=== PATIENT | male | born 1995 ===

== ENCOUNTER 2018-02-17 15:52 | Emergency (ER) | payer BC, SELFPAY ==
--- NOTE | 2018-02-17 15:54 | W.ED.GENAD ---
Discharge Plan Disposition Patient Disposition: HOME Condition: Good Discharge Details Chief Complaint: RespSymp Clinical Impression: Sinusitis ED Provider: Yariel Benitez Home Meds and New Rx's Prescriptions: New amoxicillin-pot clavulanate [Augmentin] 875-125 mg tablet 1 tab PO BID Qty: 14 RF: 0 No Action testosterone cypionate [Depo-Testosterone] 200 mg/mL Oil 50 mg IM QWEEK RF: 0 Discharge Instructions Instructions: Sinusitis (ED) Medical Decision Making 22 yo male who denies chronic medical problems comes in with cc of sinus pressure for over 2 weeks and claer rhinorrhea. Denies severe headaches or fevers or vision changes. Has normal ear exam and external mastoid exam, perrl, eomi. Does have pain with percussion over maxillary sinuses consistent with sinuses, given over 10 days of symptoms will trial abx and advised f/u with pcp if no improvement and return precautions given Differential Diagnosis uri, allergic vs viral vs bacterial sinusitis HPI General Mode of arrival: ambulatory. Date/Time Provider Initiated Documentation: 02/17/18 15:53. Limitations to Documentation: no limitations. Information obtained by: patient. History of Present Illness 22 year old M presents to the emergency department with the chief complaint of sinus pressure, described as moderate, with intensity rated at 5. Quality is described as aching, and is localized to the face. Patient started experiencing this week(s) (2) and it has been constant. No exacerbating factors reported . Patient notes no other symptoms.. Patient did receive the following treatments prior to arrival, none Related Data Home Medications Medication Instructions Recorded Confirmed amoxicillin-pot clavulanate 1 tab PO BID #14 tab 02/17/18 [Augmentin] testosterone cypionate 50 mg IM QWEEK 02/17/18 02/17/18 [Depo-Testosterone] Previous Rx's Medication Instructions Recorded amoxicillin-pot clavulanate 1 tab PO BID #14 tab 02/17/18 [Augmentin] Allergies Allergy/AdvReac Type Severity Reaction Status Date / Time No Known Allergies Allergy Unverified 02/17/18 16:00 Review of Systems Review of Systems All systems reviewed & are unremarkable except as noted in HPI and below Constitutional Denies chills and Denies fever(s) Cardiovascular Denies chest pain and Denies dyspnea Respiratory Denies dyspnea Gastrointestinal Denies abdominal pain, Denies nausea and Denies vomiting Musculoskeletal Denies joint swelling Integumentary/Breasts Denies rash PFSH Social History Smoking/Tobacco Use Status: Never Social History Smoking/Tobacco Use Status: Never Exam Const General: no acute distress Orientation: alert HENMT Head: normal to inspection Ears: external ears normal General nose exam: external nose normal Mouth: moist mucous membranes Eyes General: appearance normal, both eyes and all related structures Neck Neck: normal visual inspection Resp Effort & Inspection: normal respiratory effort and able to speak in complete sentences Cardio Rate: regular rate Skin General skin exam: no rashes or lesions noted Neuro General: alert and oriented x3 Extrem General: normal to inspection Psych Mental Status: mental status grossly normal
[2018-02-17 15:55] VITALS: BP 137/90; PULSE 80; RESP 16; TEMP 36.7; O2SAT 95
--- NOTE | 2018-02-17 16:03 | ED.GENADUL_ITS ---
Discharge Plan Disposition Patient Disposition: HOME Condition: Good Discharge Details Chief Complaint: RespSymp Clinical Impression: Sinusitis ED Provider: Yariel Benitez Home Meds and New Rx's Prescriptions: New amoxicillin-pot clavulanate [Augmentin] 875-125 mg tablet 1 tab PO BID Qty: 14 RF: 0 No Action testosterone cypionate [Depo-Testosterone] 200 mg/mL Oil 50 mg IM QWEEK RF: 0 Discharge Instructions Instructions: Sinusitis (ED) Medical Decision Making 22 yo male who denies chronic medical problems comes in with cc of sinus pressure for over 2 weeks and claer rhinorrhea. Denies severe headaches or fevers or vision changes. Has normal ear exam and external mastoid exam, perrl, eomi. Does have pain with percussion over maxillary sinuses consistent with sinuses, given over 10 days of symptoms will trial abx and advised f/u with pcp if no improvement and return precautions given Differential Diagnosis uri, allergic vs viral vs bacterial sinusitis HPI General Mode of arrival: ambulatory . Date/Time Provider Initiated Documentation: 02/17/18 15:53 . Limitations to Documentation: no limitations . Information obtained by: patient . History of Present Illness 22 year old M presents to the emergency department with the chief complaint of sinus pressure, described as moderate, with intensity rated at 5. Quality is described as aching, and is localized to the face. Patient started experiencing this week(s) (2) and it has been constant. No exacerbating factors reported . Patient notes no other symptoms.. Patient did receive the following treatments prior to arrival, none Related Data Home Medications Medication Instructions Recorded Confirmed amoxicillin-pot clavulanate 1 tab PO BID #14 tab 02/17/18 [Augmentin] testosterone cypionate 50 mg IM QWEEK 02/17/18 02/17/18 [Depo-Testosterone] Previous Rx's Medication Instructions Recorded amoxicillin-pot clavulanate 1 tab PO BID #14 tab 02/17/18 [Augmentin] Allergies Allergy/AdvReac Type Severity Reaction Status Date / Time No Known Allergies Allergy Unverified 02/17/18 16:00 Review of Systems Review of Systems All systems reviewed & are unremarkable except as noted in HPI and below Constitutional Denies chills and Denies fever(s) Cardiovascular Denies chest pain and Denies dyspnea Respiratory Denies dyspnea Gastrointestinal Denies abdominal pain, Denies nausea and Denies vomiting Musculoskeletal Denies joint swelling Integumentary/Breasts Denies rash PFSH Social History Smoking/Tobacco Use Status: Never Social History Smoking/Tobacco Use Status: Never Exam Const General: no acute distress Orientation: alert HENMT Head: normal to inspection Ears: external ears normal General nose exam: external nose normal Mouth: moist mucous membranes Eyes General: appearance normal, both eyes and all related structures Neck Neck: normal visual inspection Resp Effort & Inspection: normal respiratory effort and able to speak in complete sentences Cardio Rate: regular rate Skin General skin exam: no rashes or lesions noted Neuro General: alert and oriented x3 Extrem General: normal to inspection Psych Mental Status: mental status grossly normal
[2018-02-17 16:05] VITALS: BP 137/90; PULSE 80; RESP 16; TEMP 36.7; O2SAT 95
== END 2018-02-17 16:05 | disposition home or self-care (01) ==
LOC: ER 16:20
PROVIDERS: Emergency Provider Emergency Medicine; PCP Family Medicine
DX: J01.00 Acute maxillary sinusitis, unspecified (principal)
CPT/HCPCS: 99283

== ENCOUNTER 2020-10-18 15:48 | Outpatient (REF) | payer OTHER, SELFPAY ==
--- NOTE | 2020-10-18 14:50 | PAPFT_PTH ---
PATIENT: Getachew Adams LOC: [facility] U#:[id number] AGE/SX: 24/F ROOM: RE10/18/[address]: Octavia Napoles APRN : 1995 BED: DIS: 10/18/2020 SPEC #: [id number] RECD: 10/21/20 13:06 STATUS: MARTI SIMON #: [id number] KIMBERLY: 10/18/20 14:[address]: Octavia Napoles DEPT: [facility] Cytology RECD BY: Margaret Maravilla Tissues: 1 - CX/ENDOCX FOR PAP SMEARS Procedures: PAP THIN PREP/[facility] Screening Comments: [id number]
== END 2020-10-18 15:49 | disposition home or self-care (01) ==
LOC: LBN 15:48
PROVIDERS: PCP Nurse Practitioner Adult Health; Visit Provider Nurse Practitioner Adult Health
DX: Z12.4 Encounter for screening for malignant neoplasm of cervix (principal); Z79.890 Hormone replacement therapy
CPT/HCPCS: 88142

== ENCOUNTER 2021-02-25 03:06 | Outpatient (CLI) | payer BC, MEDICAID, SELFPAY ==
[2021-02-25 12:38] LABS: ALT 21 U/L (14-59); AST 18 U/L (15-37); Albumin 4.8 g/dL (3.4-5.0); Alkaline Phosphatase 85 U/L (46-116); Anion Gap 7.9 mmol/L (3-11); BUN 10 mg/dL (7-18); Bilirubin, Total 0.5 mg/dL (0.2-1.0); CO2 29.1 mmol/L (21.0-32.0); CREATININE 0.9 mg/dL (0.55-1.02); Calcium 9.1 mg/dL (8.5-10.1); Chloride 104 mmol/L (98-107); Glucose 93 mg/dL (74-106); Potassium 4.4 mmol/L (3.5-5.1); Sodium 141 mmol/L (136-145); TSH (W/Ref FT4) 2.26 uIU/mL (0.36-3.74); Total Protein 7.5 g/dL (6.4-8.2)
== END 2021-02-25 03:07 | disposition home or self-care (01) ==
LOC: LBO 03:07
PROVIDERS: PCP Nurse Practitioner Adult Health; Visit Provider Nurse Practitioner Adult Health
DX: F32.9 Major depressive disorder, single episode, unspecified (principal); F41.9 Anxiety disorder, unspecified; G47.00 Insomnia, unspecified; Z51.81 Encounter for therapeutic drug level monitoring
CPT/HCPCS: 36415; 80053; 84443

== ENCOUNTER 2022-02-04 18:22 | Outpatient (REF) | payer BC, SELFPAY | END 2022-02-04 18:23 | disposition home or self-care (01) | LOC: LBN 18:22 | PROVIDERS: PCP Nurse Practitioner Adult Health; Visit Provider Physician Assistant Medical | DX: J02.9 Acute pharyngitis, unspecified (principal) | CPT/HCPCS: 87070 ==

== ENCOUNTER 2023-07-28 18:29 | Outpatient (REF) | payer BC, SELFPAY ==
--- NOTE | 2023-07-28 18:15 | PAPFT_PTH ---
PATIENT: Getachew Adams LOC: [facility] U#:[id number] AGE/SX: 27/F ROOM: RE07/28/[address]: Octavia Napoles APRN : 1995 BED: DIS: 07/28/2023 SPEC #: [id number] RECD: 07/29/23 13:02 STATUS: MARTI RERussell #: [id number] KIMBERLY: 07/28/23 18:[address]: Octavia Napoles DEPT: [facility] Cytology RECD BY: Margaret Maravilla Tissues: 1 - CX/ENDOCX FOR PAP SMEARS Procedures: PAP THIN PREP/[facility] Screening Comments: [id number]
== END 2023-07-28 18:30 | disposition home or self-care (01) ==
LOC: LBN 18:29
PROVIDERS: PCP Nurse Practitioner Adult Health; Visit Provider Nurse Practitioner Adult Health
DX: Z12.4 Encounter for screening for malignant neoplasm of cervix (principal); Z11.51 Encounter for screening for human papillomavirus (HPV)
CPT/HCPCS: 88142